=== PATIENT | male | born 1970 | race African-American/Black ===

== ENCOUNTER 2019-05-29 07:25 | Emergency (ER) | payer BC ==
[~2019-05-29] VITALS: Ht 185.4 cm; Wt 149.7 kg
[2019-05-29 08:05] LABS: ABSOLUTE NEUTROPHILS 6.8 thou/uL (1.4-8.2); BASOPHILS 0.2 % (0.0-2.0); EOSINOPHILS 0.5 % (0.0-3.0); HEMATOCRIT 39.1 % (42.0-52.0); HEMOGLOBIN 12.9 gm/dL (14.0-18.0); LYMPHOCYTES 13.5 % (24.0-44.0); MCH 28.4 pg (26.0-34.0); MCHC 33.1 g/dL (28.0-37.0); MCV 85.6 fL (80.0-100.0); MONOCYTES 8.9 % (1.0-8.0); PLATELET COUNT 366 thou/uL (150-400); POLYS 76.9 % (36.0-66.0); RBC 4.56 mil/uL (4.50-6.00); RDW 13.9 % (10.5-14.5); WBC 8.8 thou/uL (4.0-11.0)
[2019-05-29 08:07] LABS: ANION GAP 9 mmol/L (7-16); BUN 21 mg/dL (7-18); CALCIUM 8.9 mg/dL (8.5-10.1); CHLORIDE 102 mmol/L (98-107); CO2 25 mmol/L (21-32); CREATININE 1.3 mg/dL (0.7-1.3); GLUCOSE 117 mg/dL (74-106); SODIUM 136 mmol/L (136-145)
[2019-05-29 08:16] LABS: TROPONIN-I <0.06 ng/mL (<0.06)
[2019-05-29] MEDS ORDERED: LEVAQUIN 750 M750 MG PO (09:45)
[2019-05-29] MEDS ORDERED: TYLENOL WITH CO1 TA1 PO (09:45)
[2019-05-29] MEDS ORDERED: SENNA-DOCUSATE1 EAC1 PO (09:45)
[2019-05-29 09:55] VITALS: BP 123/77
== END 2019-05-29 10:07 | disposition home or self-care (01) ==
LOC: ER 07:25
PROVIDERS: Emergency Medicine
DX: J18.1 Lobar pneumonia, unspecified organism (principal); Z03.818 Encounter for observation for suspected exposure to other biological agents ruled out